=== PATIENT | female | born 1960 | race Two or more races ===

== ENCOUNTER 2021-10-14 19:19 | Emergency (ER) | payer MEDICAID ==
[~2021-10-14] VITALS: Ht 157.5 cm; Wt 68.0 kg
--- NOTE | 2021-10-14 19:35 | NUR ---
BIB DAUGHTER FOR C/O ON AND OFF LUQ ABD PAIN AND N/V/D X 8 DAYS. PT A/OX4. RESP EVEN AND NON LABORED. CONNECTED PT TO POX AND MONITOR. SAFETY MEASURES IN PLACE.
--- NOTE | 2021-10-14 19:41 | NUR ---
URINE COLLECTED AND SENT TO LAB
--- NOTE | 2021-10-14 19:42 | NUR ---
DR JENNIFER LARRY AT PT'S BEDSIDE
[2021-10-14] MEDS ORDERED: PANTOPRAZOLE 40 MG VIAL ONE (19:49)
[2021-10-14] MEDS ORDERED: MORPHINE SULFATE INJ 4 MG/ML DISP.SYRIN ONE (19:50)
[2021-10-14] MEDS ORDERED: ONDANSETRON HCL/PF 4 MG/2 ML VIAL ONE (19:50)
--- NOTE | 2021-10-14 19:51 | NUR ---
PT TAKEN TO CT VIA WAGNER
[2021-10-14] MEDS ORDERED: ONDANSETRON HCL/PF 4 MG/2 ML VIAL IVP ONE (20:00)
[2021-10-14] MEDS ORDERED: IV NS 0.9% 1,000 ML BAG IV ONE (20:00)
[2021-10-14] MEDS ORDERED: PANTOPRAZOLE 40 MG VIAL IV ONE (20:00)
[2021-10-14] MEDS ORDERED: MORPHINE SULFATE INJ 2 MG/ML DISP.SYRIN IV ONE (20:00)
--- NOTE | 2021-10-14 20:19 | NUR ---
Janis CASANOVA #20G S/L; PHYSICAL THERAPIST TECHNICIAN AT PT'S BEDSIDE
[2021-10-14 20:25] LABS: BILIRUBIN,URINE NEGATIVE (NEGATIVE); COLOR,URINE YELLOW (YELLOW); LEUKOCYTE ESTERASE ,URINE NEGATIVE (NEGATIVE); NITRITE, URINE NEGATIVE (NEGATIVE); PROTEIN,URINE 30 mg/dl (NEGATIVE); UGLUCOSE NEGATIVE (NEGATIVE); UROBILINOGEN,URINE 0.2 EU/dL (0.2)
[2021-10-14 20:28] LABS: PH,URINE >8.5 (5.0-8.0)
[2021-10-14 20:29] LABS: BASOPHILS % (AUTO) 0.4 % (0.0-2.0); EOSINOPHILS % (AUTO) 0.3 % (0.0-6.0); HEMATOCRIT 45 % (33-45); HEMOGLOBIN 15.4 g/dL (11.5-14.8); LYMPHOCYTES # (AUTO) 1.8 K/uL (0.8-4.8); LYMPHOCYTES % (AUTO) 20.2 % (20.0-44.0); MEAN CORPUSCULAR HGB CONC 34 g/dl (31.0-36.0); MEAN CORPUSCULAR VOLUME 84 fL (82-100); MONOCYTES # (AUTO) 0.5 K/uL (0.1-1.30); MONOCYTES % (AUTO) 5.6 % (2.0-12.0); NEUTROPHILS # (AUTO) 6.4 K/uL (1.8-8.9); NEUTROPHILS % (AUTO) 73.5 % (43.0-81.0); PLATELET COUNT (AUTO) 306 K/uL (150-450); RED BLOOD CELL COUNT(AUTO) 5.29 MIL/uL (4.0-5.2); WHITE BLOOD COUNT (AUTO) 8.7 K/uL (4.3-11.0)
[2021-10-14 20:44] LABS: BACTERIA,URINE 1+ /HPF (None Seen); RBC,URINE 0-2 /HPF (0-2); WBC,URINE 0-2 /HPF (0-3)
[2021-10-14 20:45] LABS: URINE AMORPHOUS PHOSPHATES Many /HPF (None Seen)
[2021-10-14 20:49] LABS: ALBUMIN 4.1 g/dL (3.4-5.0); BILIRUBIN,DIRECT 0.2 mg/dL (0.0-0.2); BILIRUBIN,TOTAL 1.2 mg/dL (0.2-1.0); CREATININE 0.7 mg/dL (0.6-1.3); POTASSIUM 3.5 mmol/L (3.5-5.1); TOTAL PROTEIN, SERUM 7.9 g/dL (6.4-8.2)
[2021-10-14] MEDS ORDERED: PIPERACILLIN /TAZOBACTAM 3.375 G in IV D5W 50 ML IV ONE (21:00)
[2021-10-14] MEDS ORDERED: ONDA4TAB5 PO (21:03)
[2021-10-14] MEDS ORDERED: AMOX-430 PO (21:03)
[2021-10-14] MEDS ORDERED: PIPERACILLIN /TAZOBACTAM 3.375 G VIAL IV ONE (21:09)
--- NOTE | 2021-10-14 21:33 | NUR ---
Patient discharged to home in stable condition. Written and verbal after care instructions given. Patient verbalizes understanding of instruction. IV removed. Catheter intact and site benign. Pressure and 4x4 applied to site. No bleeding noted. PT ambulatory with a steady gait
[2021-10-14 21:41] VITALS: BP 145/77
== END 2021-10-14 21:41 | disposition home or self-care (01) ==
LOC: ER 19:24
DX: R10.12 Left upper quadrant pain (principal); A09 Infectious gastroenteritis and colitis, unspecified; I88.0 Nonspecific mesenteric lymphadenitis; R11.2 Nausea with vomiting, unspecified; Z90.710 Acquired absence of both cervix and uterus; Z86.16 Personal history of COVID-19
CPT/HCPCS: 99285; 74176; 96365; 96375; 71045; 96361; 93005; 85025; 80048; 83690; 80076; 81001; 36415; J2270; J2405; J2543 ×2; J7060; J7030; C9113